=== PATIENT | male | born 1995 | race Caucasian/White ===

== ENCOUNTER 2017-09-18 12:32 | Emergency (ER) | payer SELFPAY ==
[2017-09-18] MEDS ORDERED: Ondansetron 4 MG Tab.DIS PO ONE (13:35)
--- NOTE | 2017-09-18 14:46 | EDM.PDOC ---
ED HPI GENERAL MEDICAL PROBLEM - General Chief Complaint: Gastrointestinal Problem Stated Complaint: VOMITING Time Seen by Provider: 09/18/17 13:37 Source of Information: Reports: Patient History Limitations: Reports: No Limitations - History of Present Illness INITIAL COMMENTS - FREE TEXT/NARRATIVE: Patient is a 22-year-old male presents ED complaining of vomiting and diarrhea for the past 3 days. States last episode was around 10:00 this morning. States he has a roommate that started to vomit yesterday as well. Roommates children had similar symptoms approximately a week and half ago. Has been unable to keep any fluids or food down. States he's had some intermittent dizziness with standing. No sensation of passing out. There's been no ingestion of bad or questional food. No recent out of country travel. Patient does work at [employer]. States he has diarrhea about every 2-4 hours described as low volume with no blood present. He does feel thirsty with admission to the ED. Denies any fever/chills, syncopal episodes, chest pain, shortness breath, dysuria, abdominal pain or any additional complaints. lower mid abdomen Pain Score (Numeric/FACES): 2 - Related Data Allergies Allergy/AdvReac Type Severity Reaction Status Date / Time No Known Allergies Allergy Verified 09/18/17 12:58 Home Meds: Home Meds Ondansetron [Zofran ODT] 4 mg PO Q6H PRN #10 tab.dis 09/18/17 [Rx] Past Medical History - Past Health History Medical/Surgical History: Denies Medical/Surgical History Social & Family History - Tobacco Use Smoking Status *Q: Current Every Day Smoker Years of Tobacco use: 8 Packs/Tins Daily: 0.5 - Caffeine Use Caffeine Use: Reports: Soda - Recreational Drug Use Recreational Drug Use: No ED ROS GENERAL - Review of Systems Review Of Systems: ROS reveals no pertinent complaints other than HPI. ED EXAM, GI/ABD - Physical Exam Exam: See Below Exam Limited By: No Limitations General Appearance: Alert, WD/WN, No Apparent Distress Ears: Hearing Grossly Normal Nose: Normal Inspection Throat/Mouth: Normal Oropharynx, Normal Voice, No Airway Compromise, Other ( Glucose is moist) Head: Atraumatic, Normocephalic Neck: Normal Inspection, Supple, Non-Tender, Full Range of Motion. No: Lymphadenopathy (L), Lymphadenopathy (R) Respiratory/Chest: No Respiratory Distress, Lungs Clear, Normal Breath Sounds, No Accessory Muscle Use, Chest Non-Tender Cardiovascular: Normal Peripheral Pulses, Regular Rate, Rhythm, Other (Heart rate on examination a 78.) GI/Abdominal Exam: Normal Bowel Sounds, Soft, Non-Tender, No Organomegaly, No Distention Neurological: Alert, CN II-XII Intact, Normal Cognition, No Motor/Sensory Deficits Psychiatric: Normal Affect, Normal Mood Skin Exam: Warm, Dry, Intact, Normal Color Course - Vital Signs Last Recorded V/S: Last Vital Signs Temp 97.2 F 09/18/17 12:50 Pulse 86 09/18/17 13:49 Resp 18 09/18/17 12:50 BP 121/80 09/18/17 13:49 Pulse Ox 99 09/18/17 12:50 - Orders/Labs/Meds Meds: Medications Discontinued Medications Generic Name Dose Route Start Last Admin Trade Name Freq PRN Reason Stop Dose Admin Ondansetron HCl 4 mg 09/18/17 13:35 09/18/17 13:49 Zofran Odt PO 09/18/17 13:36 4 mg ONETIME ONE Administration - Re-Assessments/Exams Free Text/Narrative Re-Assessment/Exam: Patient has been unable to keep any fluids down over the past 3 days. States he feels thirsty and the nausea has subsided with the Zofran. States he's had intermittent dizziness with standing. Offered to start an IV and administer some IV fluids. He has refused. We'll proceed with option 2 which is discharge home with Zofran and PO liquids. Patient is requesting something to drink. Will discharge home with instructions as documented. Departure - Departure Time of Disposition: 14:47 Disposition: Home, Self-Care 01 Condition: Good Clinical Impression: Viral infection of digestive tract Nausea and vomiting Qualifiers: Vomiting type: unspecified Vomiting Intractability: non-intractable Qualified Code(s): R11.2 - Nausea with vomiting, unspecified - Discharge Information Prescriptions: Ondansetron [Zofran ODT] 4 mg PO Q6H PRN #10 tab.dis PRN Reason: Nausea/Vomiting Instructions: Viral Gastroenteritis, Adult, [id number], Nausea and Vomiting, Adult, [id number] Referrals: PCP,None [Primary Care Provider] - Forms: ED Department Discharge, ED Return to Work/School Form Additional Instructions: Take the Zofran as prescribed. Stick with a liquid diet for the next 24 hours. Drink either Pedialyte or water down Gatorade at small amounts more frequent throughout the day. Advance to bland diet tomorrow for another 24 hours thereafter advance to normal diet as tolerated. Suspect this is viral in etiology and should run its course over the next few days. Utilize proper hand hygiene to eliminate the chances of spreading. Follow-up with PCP in the next week as needed. Return to the ED for any new or worsening symptoms.
== END 2017-09-18 15:00 | disposition home or self-care (01) ==
LOC: JD.ED 12:32
DX: A08.4 Viral intestinal infection, unspecified (principal); F17.210 Nicotine dependence, cigarettes, uncomplicated
CPT/HCPCS: 99283; A9270